=== PATIENT | female | born 1955 | race Caucasian/White ===

== ENCOUNTER 2018-02-07 19:27 | Inpatient (IN) ==
--- NOTE | 2018-02-07 19:47 | Emergency Department Note ---
Disposition Clinical Impression: Atrial fibrillation with rapid ventricular response Chest pain Qualifiers: Chest pain type: unspecified Qualified Code(s): R07.9 - Chest pain, unspecified Disposition: Admitted As Inpatient Condition: Good Referrals: Steven Ragsdale MD [Primary Care Provider] - Forms: ED Satisfaction Letter Time of Disposition: 21:38 Chest Pain HPI - General Chief Complaint: ED Chest Pain Stated Complaint: Chest Pain Time Seen by Provider: 02/07/18 19:36 Source: patient Limitations: no limitations Vital Signs Reviewed: Yes Nursing Notes Reviewed: Yes - History of Present Illness HPI Narrative: 62-year-old female former smoker with history of atrial fibrillation presents an emergency department via EMS for chest pain. She states about 20 minutes prior to arrival while using the toilet she began experiencing chest pain with associated shortness of breath and some nausea, denies any vomiting. She also reports diaphoresis during episode. Denies syncope. She did feel racing of the heart but after getting 4 baby aspirin and nitro by squad her pain has come down to a 2 or 3 of 10 in a heart seems to stop skipping a beat. Pain is nonradiating. She is also experiencing some back pain. She also reports prior history of pneumonia this past month. She reports history of atrial fibrillation in her pediatric associate Dr. Dian Marinelli 6 months ago took her off medications. She is unable to recall the names of these medications states she does not take anything for her atrial fibrillation at this time. She reports a history of hypercholesterolemia. Denies any cardiac ischemic disease or stroke history. She denies any anticoagulants used. She denies any abdominal pain or fever. Reports some increase in swelling the past 2 days in her lower extremity which she does attribute more to lymph nodes be taken out of her legs. Denies history of congestive heart failure. Pt complaint: chest pain Severity scale (1-10): 6 - Related Data Home Medications Medication Instructions Recorded Confirmed No Known Home Drugs 02/07/18 02/07/18 Allergies Allergy/AdvReac Type Severity Reaction Status Date / Time atorvastatin [From Lipitor] Allergy Cramping Verified 02/07/18 21:37 of the Muscles diltiazem Allergy Hypotension Verified 02/07/18 21:37 Txwcusj-Bdd-Pei Reductase Allergy Cramping Verified 02/07/18 21:37 Inhibitor of the [Statins] Muscles All systems ED: reviewed and negative except as stated. Review of Systems: As Per HPI Constitutional: Denies: fever, chills ENT ED: Denies: congestion Cardiovascular: Reports: chest pain, palpitations. Denies: dyspnea on exertion Respiratory: Reports: dyspnea. Denies: cough Gastrointestinal: Reports: nausea, diarrhea. Denies: abdominal pain, vomiting Genitourinary: Denies: urgency, dysuria Musculoskeletal: Reports: back pain Integumentary: Denies: rash, abrasion Chest Pain PMH - Past Medical History Medical history: Reports: cancer, hyperlipidemia Psychiatric history: Reports: anxiety, depression - Social History Smoking Status: Former smoker Alcohol use: Reports: none Drug use: Reports: none Physical Exam - General Limitations: no limitations General appearance: alert, in no apparent distress, obese - Head Head exam: atraumatic, normocephalic, normal inspection - Eye Eye exam: Present: normal appearance, PERRL, EOMI - ENT ENT exam: normal exam, normal oropharynx, mucous membranes moist - Neck Neck exam: Present: normal inspection, full ROM, trachea midline - Chest Chest inspection: Present: normal inspection, symmetric chest wall rise - Respiratory Respiratory exam: Present: normal lung sounds bilaterally. Absent: respiratory distress, wheezes - Cardiovascular Cardiovascular exam: Present: tachycardia, irregular rhythm, normal heart sounds - Expanded Cardiovascular Exam Peripheral pulses: 2+: radial (R), radial (L) - Abdominal Exam Abdominal exam: Present: soft (Obese), Non-Tender. Absent: tenderness, distention, guarding, rebound, rigidity - Extremities Exam Extremities exam: Present: normal inspection, full ROM, normal capillary refill , pedal edema (Nonpitting symmetrical). Absent: tenderness - Neurological Exam Neurological exam: Present: alert, oriented X3 - Psychiatric Psychiatric exam: Present: normal affect, normal mood - Skin Skin exam: Present: warm, dry, intact, normal color. Absent: rash, cyanosis, diaphoresis Course Course Narrative: EKG shows atrial fibrillation with rapid ventricular response. Her heart is irregularly irregular. Lungs are clear to auscultation bilaterally. Abdomen soft nontender nondistended. Nonpitting peripheral edema to bilateral lower extremities. Patient will be evaluated for his atrial fibrillation and given Cardizem 10 mg bolus and placed on drip she has adverse reaction of hypotension with diltiazem listed. She may require admission for atrial fibrillation. Chest pain workup initiated with troponin given onset of her chest pain. - Reevaluation(s) Reevaluation #1: Heart rate has improved with Cardizem. Heart rate is now in the 100s. Troponin is less than 0.03. No electrolyte abnormality. Hemoglobin stable. Her CHADSVASC scores 1. She will require admission for further evaluation of her chest pain with trending of the troponin. EKG does not show any acute ischemic changes. She also require further evaluation for atrial fibrillation with rapid ventricular response. Her chest x-ray shows a improving pneumonia. Patients in agreement with this plan. Impression is atrial fibrillation with rapid ventricular response and resolving pneumonia. Time: 21:35 - Consultations Consultation #1: Spoke with on-call hospitalist nellie Bhagat to admit for afib c RVR and resolving pneumonia. No further orders at this time Time: 21:38 Vital Signs Temperature 98.0 F 02/07/18 19:29 Pulse Rate 139 02/07/18 19:29 Respiratory Rate 20 02/07/18 19:29 Blood Pressure 118/67 02/07/18 19:29 O2 Sat by Pulse Oximetry 90 02/07/18 19:29 Temperature 98.0 F 02/07/18 19:29 Pulse Rate 106 02/07/18 20:32 Respiratory Rate 20 02/07/18 20:32 Blood Pressure 115/78 02/07/18 20:32 O2 Sat by Pulse Oximetry 95 02/07/18 20:32 Oxygen Delivery Oxygen Delivery Nasal Cannula Chest Pain - MDM Narrative Medical decision making narrative: Patient was discussed with my attending physician who agrees with ED management and final disposition. They independently evaluated the patient. Please refer to their attestation to this encounter for additional information. This note was generated by [employer] voice recognition software and as a result grammatical or spelling errors may occur using this program. - Medical Records Medical records reviewed: Yes I reviewed the patient's medical records. - Lab Data Lab results reviewed: Yes I reviewed the patient's lab results. Result diagrams: 02/07/18 19:44 02/07/18 19:44 Lab Results 02/07/18 02/07/18 02/07/18 Range/Units 19:44 19:44 19:44 WBC 9.0 (4.3-11.1) K/mcL RBC 4.56 (3.82-4.97) M/mcL Hgb 13.9 (11.5-15.4) g/dL Hct 40.3 (35.3-44.9) % MCV 88.4 (83.0-100.0) fL MCH 30.5 (28.0-33.3) pg MCHC 34.5 (31.6-35.5) g/dL RDW 13.2 (11.5-14.5) % Plt Count 329 (140-400) K/mcL MPV 9.0 L (9.4-12.4) fL Immature Gran % 0.9 (0-4) % Seg Neutrophils % 77.1 % Lymphocytes % 14.9 % Monocytes % 4.6 % Eosinophils % 1.8 % Basophils % 0.7 % Neutrophils # 6.9 (1.6-8.9) K/mcL Lymphocytes # 1.3 (0.6-4.6) K/mcL Monocytes # 0.4 (0.0-1.3) K/mcL Eosinophils # 0.2 (0.0-0.6) K/mcL Basophils # 0.1 (0.0-0.2) K/mcL PT 11.1 (9.4-12.1) Seconds INR 1.0 APTT 22.5 L (26.0-36.0) Seconds Sodium 135 L (136-145) mEq/L Potassium 4.4 (3.5-5.1) mEq/L Chloride 106 (98-107) mEq/L Carbon Dioxide 21 L (23-29) mEq/L BUN 17 (8-23) mg/dL Creatinine 0.86 (0.60-1.20) mg/dL Est GFR ( Amer) > 60 (> 60) Est GFR (Non-Af Amer) > 60 (> 60) BUN/Creatinine Ratio 20 (6-26) Glucose 184 H (70-105) mg/dL Calculated Osmolality 286 (280-300) Calcium 8.8 (8.6-10.3) mg/dL Troponin I < 0.03 (< 0.04) ng/mL TSH 1.789 (0.340-5.600) mcIU/mL - Radiology Data Radiology results reviewed: Yes I reviewed the patient's radiology results. Chest X-Ray 02/07/18 19:44 IMPRESSION: Patchy left lower lung pneumonia has partially cleared in the interval. D/ / Aaron Yap MD / Aaron Yap MD Interpreting Provider: Aaron Yap MD - EKG Data EKG attestation: Yes I reviewed and interpreted this EKG. EKG results narrative: EKG performed 1930 atrial fibrillation with rapid ventricular response 122 beats per minute, QRS 79, nonspecific ST T-wave changes. Compared to prior EKG performed 04/11/2016 with atrial fibrillation. No acute ischemic changes. Heart Score - Score History: Slightly Suspicious EKG: Non Specific repolarisation Disturbance Age: 45-65 Risk Factors: 1-2 risk factors Troponin: Less than normal limit HEART Score Total: 3
[2018-02-07 19:53] LABS: Basophils # 0.1 K/mcL (0.0-0.2); Basophils % 0.7 %; Eosinophils # 0.2 K/mcL (0.0-0.6); Eosinophils % 1.8 %; Hematocrit 40.3 % (35.3-44.9); Hemoglobin 13.9 g/dL (11.5-15.4); Immature Granulocytes % 0.9 % (0-4); Lymphocytes # 1.3 K/mcL (0.6-4.6); Lymphocytes % 14.9 %; Mean Corpuscular HGB Conc 34.5 g/dL (31.6-35.5); Mean Corpuscular Hemoglobin 30.5 pg (28.0-33.3); Mean Corpuscular Volume 88.4 fL (83.0-100.0); Monocytes # 0.4 K/mcL (0.0-1.3); Monocytes % 4.6 %; Neutrophils # 6.9 K/mcL (1.6-8.9); Platelet Count 329 K/mcL (140-400); Red Blood Count 4.56 M/mcL (3.82-4.97); Red Cell Distribution Width 13.2 % (11.5-14.5); Segmented Neutrophils % 77.1 %
[2018-02-07 19:58] LABS: Prothrombin Time 11.1 Seconds (9.4-12.1)
[2018-02-07 20:01] LABS: Activated Partial Thrombo Time 22.5 Seconds (26.0-36.0)
[2018-02-07 20:41] LABS: BUN/Creatinine Ratio 20 (6-26); Blood Urea Nitrogen 17 mg/dL (8-23); Calcium 8.8 mg/dL (8.6-10.3); Carbon Dioxide 21 mEq/L (23-29); Chloride 106 mEq/L (98-107); Glucose 184 mg/dL (70-105); Osmolality,Calculated 286 (280-300); Potassium 4.4 mEq/L (3.5-5.1); Sodium 135 mEq/L (136-145); eGFR For African Americans > 60 (> 60); eGFR For Non-African Americans > 60 (> 60)
[2018-02-07 20:42] LABS: Thyroid Stimulating Hormone 1.789 mcIU/mL (0.340-5.600); Troponin I < 0.03 ng/mL (< 0.04)
[2018-02-07] MEDS ORDERED: Ketorolac 15 MG/ML VIAL IVP ONE (20:59)
--- NOTE | 2018-02-07 22:27 | Emergency Department Note ---
Disposition Clinical Impression: Atrial fibrillation with rapid ventricular response Chest pain Qualifiers: Chest pain type: unspecified Qualified Code(s): R07.9 - Chest pain, unspecified Disposition: Admitted As Inpatient Condition: Good General Adult HPI - General Chief complaint: ED Chest Pain Stated complaint: Chest Pain Time Seen by Provider: 02/07/18 19:36 Source: patient Limitations: no limitations Nursing Notes Reviewed: Yes Vital Signs Reviewed: Yes - History of Present Illness Pain Scale: 0 - Related Data Home Medications Medication Instructions Recorded Confirmed No Known Home Drugs 02/07/18 02/07/18 Allergies Allergy/AdvReac Type Severity Reaction Status Date / Time atorvastatin [From Lipitor] Allergy Cramping Verified 02/07/18 21:37 of the Muscles diltiazem Allergy Hypotension Verified 02/07/18 21:37 Uuclfha-Kmp-Rwt Reductase Allergy Cramping Verified 02/07/18 21:37 Inhibitor of the [Statins] Muscles Constitutional: Denies: fever, chills ENT ED: Denies: congestion Cardiovascular: Reports: chest pain, palpitations. Denies: dyspnea on exertion Respiratory: Reports: dyspnea. Denies: cough Gastrointestinal: Reports: nausea, diarrhea. Denies: abdominal pain, vomiting Genitourinary: Denies: urgency, dysuria Musculoskeletal: Reports: back pain Integumentary: Denies: rash, abrasion Past Medical History - Past Medical History Medical history: Reports: cancer, hyperlipidemia Psychiatric history: Reports: anxiety, depression - Social History Smoking Status: Former smoker Smokeless Tobacco Status: No Alcohol use: Reports: none Drug use: Reports: none Physical Exam - General Limitations: no limitations General appearance: alert, in no apparent distress, obese Course Vital Signs Temperature 98.0 F 02/07/18 19:29 Pulse Rate 139 02/07/18 19:29 Respiratory Rate 20 02/07/18 19:29 Blood Pressure 118/67 02/07/18 19:29 O2 Sat by Pulse Oximetry 90 02/07/18 19:29 Temperature 98.0 F 02/07/18 19:29 Pulse Rate 102 02/07/18 22:14 Respiratory Rate 18 02/07/18 22:14 Blood Pressure 107/69 02/07/18 22:14 O2 Sat by Pulse Oximetry 98 02/07/18 22:14 Oxygen Delivery Oxygen Delivery Nasal Cannula Medical Decision Making - Lab Data Result diagrams: 02/07/18 19:44 02/07/18 19:44 Lab Results 02/07/18 02/07/18 02/07/18 Range/Units 19:44 19:44 19:44 WBC 9.0 (4.3-11.1) K/mcL RBC 4.56 (3.82-4.97) M/mcL Hgb 13.9 (11.5-15.4) g/dL Hct 40.3 (35.3-44.9) % MCV 88.4 (83.0-100.0) fL MCH 30.5 (28.0-33.3) pg MCHC 34.5 (31.6-35.5) g/dL RDW 13.2 (11.5-14.5) % Plt Count 329 (140-400) K/mcL MPV 9.0 L (9.4-12.4) fL Immature Gran % 0.9 (0-4) % Seg Neutrophils % 77.1 % Lymphocytes % 14.9 % Monocytes % 4.6 % Eosinophils % 1.8 % Basophils % 0.7 % Neutrophils # 6.9 (1.6-8.9) K/mcL Lymphocytes # 1.3 (0.6-4.6) K/mcL Monocytes # 0.4 (0.0-1.3) K/mcL Eosinophils # 0.2 (0.0-0.6) K/mcL Basophils # 0.1 (0.0-0.2) K/mcL PT 11.1 (9.4-12.1) Seconds INR 1.0 APTT 22.5 L (26.0-36.0) Seconds Sodium 135 L (136-145) mEq/L Potassium 4.4 (3.5-5.1) mEq/L Chloride 106 (98-107) mEq/L Carbon Dioxide 21 L (23-29) mEq/L BUN 17 (8-23) mg/dL Creatinine 0.86 (0.60-1.20) mg/dL Est GFR ( Amer) > 60 (> 60) Est GFR (Non-Af Amer) > 60 (> 60) BUN/Creatinine Ratio 20 (6-26) Glucose 184 H (70-105) mg/dL Calculated Osmolality 286 (280-300) Calcium 8.8 (8.6-10.3) mg/dL Troponin I < 0.03 (< 0.04) ng/mL TSH 1.789 (0.340-5.600) mcIU/mL Critical Care Time Critical Care Time: Yes Total Critical Care Time: 40 Attestation: Critical care performed: Time is exclusive of separately billable procedures. Time includes: direct patient care, patient reassessment, coordination of patient care, interpretation of data (laboratory data, radiology data, and respiratory data), review of patient's medical records, medical consultation and documentation of patient care. Procedures included in critical care time: Procedures excluded from critical care time: Attestation Statement - Attestation Attestation: I, Yobany Chahal MD, personally evaluated this patient and discussed their management with the resident physician. I reviewed the resident's note and agree with the documented findings, medical decision making, and plan of care. 62-year-old female with history of atrial fibrillation presents to the emergency department complaining of some mid chest pain this evening. She tells me she is actually had this pain intermittently for the past few days but it became worse this evening. Some shortness of breath associated with the pain. She also complains that she has had some diarrhea today. No syncope. On examination patient is a well-developed obese female in no acute distress. She is alert and oriented 3. There is no cyanosis or diaphoresis. Breath sounds are decreased bilaterally with a few bibasilar rales. Heart tachycardic and irregularly irregular. Abdomen soft and nontender with normal bowel sounds. Trace pedal edema. Labs reviewed. Troponin normal. EKG shows atrial fibrillation with RVR. Chest x-ray shows: Patchy left lower lung pneumonia has partially cleared in the interval. Patient was started on Cardizem infusion. The hospitalist, Dr. Bahena, was consulted and accepted admission of the patient.
[2018-02-07] MEDS ORDERED: Naloxone 0.4 MG/ML INJ IVP PRN (23:26)
[2018-02-07] MEDS ORDERED: Acetaminophen 325 MG TABLET PO PRN (23:26)
[2018-02-07] MEDS ORDERED: Isovue-370 500 ML INFUS..BTL IV ONE (23:36)
--- NOTE | 2018-02-08 00:11 | Internal Med History&Physical ---
<KashifMariana rodriguez - Last Filed: 02/08/18 00:35> Date of Encounter: 02/08/18 Time of Encounter: 00:09 Internal Medicine - H&P: HPI Chief complaint: Chest pain, diarrhea Admitted From: Emergency Dept Plans for Post Hospital Care: Home History of present illness: Ms. Marinelli is a 62 year old female with past medical history of hypertension, arthritis, HLD, atrial fibrillation, NIMO, obesity, valvular carcinoma (S/P surgical excision with lymph node excision-follows with in [place]), obesity with history of bariatric surgery in 2014. Patient says that starting this morning she had abdominal cramping and 8-9 episodes of diarrhea. She also states that her grandchildren and son has had diarrhea as well. She was also on antibiotics about 3 weeks ago for treatment of pneumonia. She also complained of chest pain that was substandard all, 10/10 radiating to the back. This pain was relieved with SL nitroglycerin. Chest pain was worse with movement as well. She did have a stress test in 2014 but does not remember the results. Patient admits to nausea with one episode of vomiting in the emergency department. She denies fevers, chills, shortness of breath, hematuria , hematochezia, melena, dizziness. Past Med Surg Social Fam HX - Past Medical History Medical history: cancer, hyperlipidemia Psychiatric history: anxiety, depression - Social History Smoking Status: Former smoker Smokeless Tobacco Status: No Alcohol use: none Drug use: none Internal Medicine - H&P: Meds No Known Home Drugs 02/07/18 [History] 3 Allergy/AdvReac Type Severity Reaction Status Date / Time atorvastatin [From Lipitor] Allergy Cramping Verified 02/07/18 21:37 of the Muscles diltiazem Allergy Hypotension Verified 02/07/18 21:37 Srhhmdj-Cjt-Wcn Reductase Allergy Cramping Verified 02/07/18 21:37 Inhibitor of the [Statins] Muscles All Systems PM: A 10-system review of systems was performed and is negative for pertinent findings except as documented above in the HPI. - Constitutional Vitals: Temp Pulse Resp BP Pulse Ox 97.4 F L 90 16 112/74 95 02/07/18 23:37 02/07/18 23:37 02/07/18 23:37 02/07/18 23:37 02/07/18 23:37 General appearance: Present: A&O X 3, pleasant, no acute distress, answers questions appropriately - Head Head exam: Present: atraumatic, normocephalic - Neck Neck exam general surgery: Present: supple, trachea midline - Respiratory Respiratory exam: Present: decreased breath sounds - Cardiovascular Cardiovascular exam: Present: distant heart sounds - GI/Abdominal GI/Abdominal exam: Present: distended, hypoactive bowel sounds, soft. Absent: tenderness - Extremities Exam Extremities exam: Absent: cyanotic, pedal edema - Neurological Exam Neurological exam: Present: alert, oriented X3, no focal deficits - Skin Skin exam: Present: intact Internal Med - H&P Results - Labs CBC & Chem 7: 02/07/18 19:44 02/07/18 19:44 - Assessment and plan (1) Atrial fibrillation with rapid ventricular response Current Visit: Yes Status: Acute Assessment and plan: History of atrial fibrillation, but patient currently is off all her medications. According to office visit note from 09/[address] Marinelli, she was previously on a beta darin was discontinued due to hypotension. Presented today with complaint of diarrhea, typical chest pain. EKG showed atrial fibrillation with RVR. Chest x-ray showed patchy left lower lung pneumonia that is partially cleared compared to prior study. Etiology unclear at this time. Initial troponin negative TSH within normal limits CHADS2/VASC: 2 Plan: trend troponins echocardiogram CTA to rule out PE Cardizem gtt-wean as tolerated Telemetry (2) Chest pain Current Visit: Yes Status: Acute Assessment and plan: Presents with typical chest pain, initial troponin negative. Had pharmacologic nuclear stress test in 01/2015 that was negative for ischemia or infarct plan: as above Qualifiers: Chest pain type: unspecified Qualified Code(s): R07.9 - Chest pain, unspecified (3) HTN (hypertension) Current Visit: No Status: Chronic Qualifiers: Hypertension type: unspecified Qualified Code(s): I10 - Essential (primary ) hypertension (4) Arthritis Current Visit: No Status: Chronic (5) Hyperlipidemia Current Visit: No Status: Chronic Qualifiers: Hyperlipidemia type: unspecified Qualified Code(s): E78.5 - Hyperlipidemia , unspecified (6) DVT prophylaxis Current Visit: Yes Status: Acute Assessment and plan: Heparin SQ (7) Diarrhea Current Visit: Yes Status: Acute Assessment and plan: Patient states that family members has been having diarrhea, and she was also recently on antibiotics 3 weeks ago for pneumonia. Plan: encourage oral hydration, check C diff Qualifiers: Diarrhea type: unspecified type Qualified Code(s): R19.7 - Diarrhea, unspecified - Time Spent With Patient Total time spent is greater than 50% in coordination of care (as documented) at patient's floor/unit and/or counseling patient: <Kenna Bunch - Last Filed: 02/08/18 01:24> Date of Encounter: 02/08/18 Internal Medicine - H&P: HPI History of present illness: Ms. Marinelli is a 62 year old female All Systems PM: A 10-system review of systems was performed and is negative for pertinent findings except as documented above in the HPI. - Constitutional Vitals: Temp Pulse Resp BP Pulse Ox 97.4 F L 90 16 112/74 95 02/07/18 23:37 02/07/18 23:37 02/07/18 23:37 02/07/18 23:37 02/07/18 23:37 Internal Med - H&P Results - Labs CBC & Chem 7: 02/07/18 19:44 02/07/18 19:44 - Attending Attestation I have seen and examined this patient independently. I have discussed with resident physician Dr Grider regarding the management plan. Agree with the documentation. - Assessment and plan (1) HTN (hypertension) Current Visit: No Status: Chronic Qualifiers: Hypertension type: unspecified Qualified Code(s): I10 - Essential (primary ) hypertension (2) Arthritis Current Visit: No Status: Chronic (3) Hyperlipidemia Current Visit: No Status: Chronic Qualifiers: Hyperlipidemia type: unspecified Qualified Code(s): E78.5 - Hyperlipidemia , unspecified (4) Chest pain Current Visit: Yes Status: Acute Qualifiers: Chest pain type: unspecified Qualified Code(s): R07.9 - Chest pain, unspecified (5) Atrial fibrillation with rapid ventricular response Current Visit: Yes Status: Acute (6) DVT prophylaxis Current Visit: Yes Status: Acute (7) Diarrhea Current Visit: Yes Status: Acute Qualifiers: Diarrhea type: unspecified type Qualified Code(s): R19.7 - Diarrhea, unspecified - Time Spent With Patient Total time spent is greater than 50% in coordination of care (as documented) at patient's floor/unit and/or counseling patient:
[2018-02-08] MEDS ORDERED: Isovue-370 500 ML INFUS..BTL IV ONE (02:10)
[2018-02-08] MEDS ORDERED: *HR* Heparin 5,000 UNIT/ML VIAL IVP PRN ×2 (05:08)
[2018-02-08] MEDS ORDERED: *HR* Heparin 5,000 UNIT/ML VIAL IVP ONE (05:08)
--- NOTE | 2018-02-08 05:11 | Event Note ---
Date of Encounter: 02/08/18 Time of Encounter: 05:09 Received phone call from [facility] radiology regarding critical results. Was notified that patient does have a small pulmonary embolus in the right lower area, no evidence of right heart strain. Patient will be started on heparin GTT , subcutaneous heparin will be discontinued. Nurse notified.
[2018-02-08] MEDS: Heparin 25,000 UNIT/500 ML D5W 25,000 UNIT/500 ML BAG IVC SCH ×2 (05:37→22:16)
[2018-02-08] MEDS ORDERED: *HR* Heparin 5,000 UNIT/ML VIAL SQ SCH (06:00)
[2018-02-08 06:26] LABS: BUN/Creatinine Ratio 24 (6-26); Blood Urea Nitrogen 18 mg/dL (8-23); Calcium 8.7 mg/dL (8.6-10.3); Carbon Dioxide 25 mEq/L (23-29); Chloride 106 mEq/L (98-107); Glucose 100 mg/dL (70-105); Magnesium 2.1 mg/dL (1.6-2.6); Osmolality,Calculated 284 (280-300); Phosphorous 3.5 mg/dL (2.7-4.5); Potassium 4.4 mEq/L (3.5-5.1); Sodium 136 mEq/L (136-145); eGFR For African Americans > 60 (> 60); eGFR For Non-African Americans > 60 (> 60)
[2018-02-08 07:15] LABS: Basophils % 0.7 %; Eosinophils % 0.7 %; Hematocrit 36.7 % (35.3-44.9); Hemoglobin 12.5 g/dL (11.5-15.4); Immature Granulocytes % 1.2 % (0-4); Lymphocytes # 1.1 K/mcL (0.6-4.6); Lymphocytes % 18.9 %; Mean Corpuscular HGB Conc 34.1 g/dL (31.6-35.5); Mean Corpuscular Hemoglobin 30.3 pg (28.0-33.3); Mean Corpuscular Volume 89.1 fL (83.0-100.0); Mean Platelet Volume 8.9 fL (9.4-12.4); Monocytes # 0.4 K/mcL (0.0-1.3); Monocytes % 7.4 %; Platelet Count 290 K/mcL (140-400); Red Blood Count 4.12 M/mcL (3.82-4.97); Red Cell Distribution Width 13.6 % (11.5-14.5); Segmented Neutrophils % 71.1 %
[2018-02-08] MEDS: Aspirin 81 MG TAB.CHEW PO SCH (09:25)
[2018-02-08 11:58] LABS: INR 1.2; Prothrombin Time 12.9 Seconds (9.4-12.1)
[2018-02-08 13:31] LABS: Activated Partial Thrombo Time 195.1 Seconds (26.0-36.0)
[2018-02-08 13:49] LABS: Heparin anti-factor XA UFH 1.63 IU/mL (0.30-0.70)
[2018-02-08] MEDS ORDERED: Ipratropium/Albuterol Neb 3 ML IH PRN (17:59)
[2018-02-08] MEDS: Levofloxacin 750 MG/150 ML 750 MG/150 ML BAG IVPB SCH (18:47)
--- NOTE | 2018-02-08 20:29 | Internal Med Progress Note ---
Date of Encounter: 02/08/18 Time of Encounter: 17:07 - Assessment and plan (1) Chest pain Current Visit: Yes Status: Resolved Assessment and plan: Resolved. Cardiac enzymes trended negative x 3. Treating Afib and PE as per below. Also starting to treat questionable PNA and likely COPD (not in exacerbation) as per below. Qualifiers: Chest pain type: other chest pain Qualified Code(s): R07.89 - Other chest pain; R07.8 - Other chest pain (2) Atrial fibrillation with rapid ventricular response Current Visit: Yes Status: Acute Assessment and plan: Continue telemetry and cardizem drip. Will wean cardizem drip and transition to PO once we obtain records from [employer]. (3) Pulmonary embolism Current Visit: Yes Status: Acute Assessment and plan: Continue heparin drip. Will transition to PO anticoagulation after determining insurance coverage. Qualifiers: Pulmonary embolism type: other Chronicity: acute Acute cor pulmonale presence: with acute cor pulmonale Qualified Code(s): I26.09 - Other pulmonary embolism with acute cor pulmonale (4) Pneumonia Current Visit: Yes Status: Acute Assessment and plan: Low suspicion. Will add IV levaquin for now. Qualifiers: Pneumonia type: due to unspecified organism Laterality: unspecified laterality Lung location: unspecified part of lung Qualified Code(s): J18.9 - Pneumonia, unspecified organism (5) COPD (chronic obstructive pulmonary disease) Current Visit: Yes Status: Acute Assessment and plan: Past history of this, but never really treated or controlled per patient. Start duonebs scheduled, albuterol nebs PRN, and guaifenesin. Qualifiers: COPD type: unspecified COPD Qualified Code(s): J44.9 - Chronic obstructive pulmonary disease, unspecified (6) HTN (hypertension) Current Visit: No Status: Chronic Assessment and plan: History of hypertension, but patient is not on any home medications, unclear why. Will try to obtain records from PCP/[employer]. Qualifiers: Hypertension type: unspecified Qualified Code(s): I10 - Essential (primary ) hypertension (7) Arthritis Current Visit: No Status: Chronic (8) Hyperlipidemia Current Visit: No Status: Chronic Qualifiers: Hyperlipidemia type: unspecified Qualified Code(s): E78.5 - Hyperlipidemia , unspecified (9) Diarrhea Current Visit: Yes Status: Resolved Assessment and plan: Resolved. Qualifiers: Diarrhea type: unspecified type Qualified Code(s): R19.7 - Diarrhea, unspecified (10) DVT prophylaxis Current Visit: Yes Status: Acute Assessment and plan: Continue heparin drip as per above. - Time Spent With Patient Total time spent is greater than 50% in coordination of care (as documented) at patient's floor/unit and/or counseling patient: 25 - 35 minutes - Subjective Interval history: Patient had no acute events overnight. She states that she is feeling better. Chest pain has resolved. Breathing is good. Still having some mild congestion and cough, but no pain with deep breaths or SOB. She does think she hears some breathing. I spent 30 minutes with patient today getting her full history. She states that she has been having "ammonia" for the past 1 month. I assume she is referring to pneumonia after further questioning. She states that she has been treated with antibiotics by urgent care few weeks ago. Then she followed up with PCP who gave her mucinex. Then she had CXR this week at request of PCP, and then had PCP follow-up this coming week. All for her "ammonia." She denies SOB, but states that she hears herself "wheeze." She states that she has had a diagnosis of Afib. She was on medications for long time by her [facility] [employer] Dr. Marinelli, but he stopped them a while back. She has been told that she has COPD, but she was never on any medication except an albuterol inhaler recently from urgent care. She states that the inhaler helps somewhat. She quit smoking cigarettes 10 years ago. I explained anticoagulation for PE to her. I answered all of her questions. She voiced understanding of plan going forward. CXR and CTA chest were questionable for pneumonia. I will add IV levaquin to her regimen, but I have low suspicion. I do believe uncontrolled COPD is playing a part, but not in exacerbation. I will add scheduled duonebs, albuterol nebs PRN, and guaifenesin. We will continue heparin drip for PE until we determine insurance coverage of PO anticoagulants. We will continue cardizem drip until we find out from [employer] what she was on before. Hopefully, we can obtain this or transition her to PO cardizem tomorrow. She denies chest pain, SOB, fever, chills, nausea, or vomiting at this time. She has no other complaints at this time. - Constitutional Vitals: Temp Pulse Resp BP Pulse Ox 97.7 F 84 18 105/67 95 02/08/18 19:40 02/08/18 19:40 02/08/18 19:40 02/08/18 19:40 02/08/18 19:40 General appearance: Present: cooperative, A&O X 3, morbidly obese, pleasant, no acute distress, answers questions appropriately - Respiratory Respiratory exam: Present: CTAB. Absent: accessory muscle use, rales, rhonchi, wheezes Additional comments: Normal WOB - Cardiovascular Cardiovascular exam: Present: RRR, +S1, +S2. Absent: diastolic murmur, gallop, rubs, systolic murmur Additional comments: No BLE edema - GI/Abdominal GI/Abdominal exam: Present: normal bowel sounds, soft. Absent: distended, hepatomegaly, mass, splenomegaly, tenderness - Psychiatric Psychiatric exam: Present: normal affect, normal mood. Absent: agitated, anxious, depressed - Skin Skin exam: Present: dry, intact, warm. Absent: cyanosis, rash Internal Medicine: Result - Labs CBC & Chem 7: 02/08/18 05:49 02/08/18 05:49 - ABG Interpretation ABG results: PT/INR, D-dimer PT 12.9 Seconds (9.4-12.1) H 02/08/18 11:34 D-Dimer 1397 ng/mLFEU (0-500) H 02/08/18 01:09 Consult Discharge Plan - Plan Referrals: Steven Ragsdale MD [Primary Care Provider] -
[2018-02-08] MEDS: Ipratropium/Albuterol Neb 3 ML IH SCH (21:31)
[2018-02-09] MEDS: Ipratropium/Albuterol Neb 3 ML IH SCH ×4 (03:08→22:33)
[2018-02-09 04:11] LABS: Basophils # 0.1 K/mcL (0.0-0.2); Basophils % 0.7 %; Eosinophils # 0.7 K/mcL (0.0-0.6); Eosinophils % 9.3 %; Hematocrit 35.7 % (35.3-44.9); Hemoglobin 12.3 g/dL (11.5-15.4); Immature Granulocytes % 1.9 % (0-4); Lymphocytes # 2.3 K/mcL (0.6-4.6); Lymphocytes % 32.3 %; Mean Corpuscular HGB Conc 34.5 g/dL (31.6-35.5); Mean Corpuscular Hemoglobin 30.4 pg (28.0-33.3); Mean Corpuscular Volume 88.4 fL (83.0-100.0); Mean Platelet Volume 8.9 fL (9.4-12.4); Monocytes # 0.7 K/mcL (0.0-1.3); Monocytes % 9.3 %; Neutrophils # 3.4 K/mcL (1.6-8.9); Nucleated Red Blood Cells 0.4 /100 WBC (0); Platelet Count 277 K/mcL (140-400); Red Blood Count 4.04 M/mcL (3.82-4.97); Red Cell Distribution Width 13.6 % (11.5-14.5); Segmented Neutrophils % 46.5 %
[2018-02-09] MEDS: Heparin 25,000 UNIT/500 ML D5W 25,000 UNIT/500 ML BAG IVC SCH ×2 (04:47→23:58)
[2018-02-09 05:07] LABS: BUN/Creatinine Ratio 20 (6-26); Blood Urea Nitrogen 14 mg/dL (8-23); Calcium 8.7 mg/dL (8.6-10.3); Carbon Dioxide 27 mEq/L (23-29); Chloride 105 mEq/L (98-107); Glucose 92 mg/dL (70-105); Osmolality,Calculated 286 (280-300); Potassium 3.9 mEq/L (3.5-5.1); Sodium 138 mEq/L (136-145); eGFR For African Americans > 60 (> 60); eGFR For Non-African Americans > 60 (> 60)
[2018-02-09] MEDS: Levofloxacin 750 MG/150 ML 750 MG/150 ML BAG IVPB SCH (08:10)
[2018-02-09] MEDS: Aspirin 81 MG TAB.CHEW PO SCH (08:10)
[2018-02-09] MEDS: Loratadine 10 MG TABLET PO SCH (15:48)
--- NOTE | 2018-02-09 21:28 | Internal Med Progress Note ---
Date of Encounter: 02/09/18 Time of Encounter: 16:07 - Assessment and plan (1) Chest pain Current Visit: Yes Status: Resolved Assessment and plan: Resolved. No further episodes since admission. Cardiac enzymes trended negative x 3. Treating Afib and PE as per below. Also starting to treat questionable PNA and likely COPD (in mild exacerbation) as per below. Qualifiers: Chest pain type: other chest pain Qualified Code(s): R07.89 - Other chest pain; R07.8 - Other chest pain (2) Atrial fibrillation with rapid ventricular response Current Visit: Yes Status: Acute Assessment and plan: Continue telemetry and cardizem drip. Will wean cardizem drip and transition to PO once we obtain records from [employer] [facility]. (3) Pulmonary embolism Current Visit: Yes Status: Acute Assessment and plan: Continue heparin drip. Will transition to PO anticoagulation after determining insurance coverage. Qualifiers: Pulmonary embolism type: other Chronicity: acute Acute cor pulmonale presence: with acute cor pulmonale Qualified Code(s): I26.09 - Other pulmonary embolism with acute cor pulmonale (4) Pneumonia Current Visit: Yes Status: Suspected Assessment and plan: Low suspicion. Will add IV levaquin for now. Qualifiers: Pneumonia type: due to unspecified organism Laterality: unspecified laterality Lung location: unspecified part of lung Qualified Code(s): J18.9 - Pneumonia, unspecified organism (5) COPD (chronic obstructive pulmonary disease) Current Visit: Yes Status: Acute Assessment and plan: Past history of this, but never really treated or controlled per patient. Continue duonebs scheduled, albuterol nebs PRN, and guaifenesin. Add claritin today because she has history of allergic rhinitis. Qualifiers: COPD type: unspecified COPD Qualified Code(s): J44.9 - Chronic obstructive pulmonary disease, unspecified (6) HTN (hypertension) Current Visit: No Status: Chronic Assessment and plan: History of hypertension, but patient is not on any home medications, unclear why. Will try to obtain records from PCP/[facility]. BP improved today. Qualifiers: Hypertension type: unspecified Qualified Code(s): I10 - Essential (primary ) hypertension (7) Arthritis Current Visit: No Status: Chronic (8) Hyperlipidemia Current Visit: No Status: Chronic Qualifiers: Hyperlipidemia type: unspecified Qualified Code(s): E78.5 - Hyperlipidemia , unspecified (9) Diarrhea Current Visit: Yes Status: Resolved Qualifiers: Diarrhea type: unspecified type Qualified Code(s): R19.7 - Diarrhea, unspecified (10) DVT prophylaxis Current Visit: Yes Status: Acute Assessment and plan: Continue heparin drip as per above. - Time Spent With Patient Total time spent is greater than 50% in coordination of care (as documented) at patient's floor/unit and/or counseling patient: 25 - 35 minutes - Subjective Interval history: Patient had no acute events overnight. She states that she is feeling "great" today. Chest pain remains resolved. Breathing is "much improved" and almost back to her baseline. Congestion and cough also improved. She does think she hears some breathing. Patient has family in room today. We again discussed disease process and plan of care. I told her that I am not convinced this is pneumonia. It is more likely mild COPD exacerbation. I will continue nebulizer treatments and antibiotic for now; no need for steroids. I will discharge her home with nebulizer prescription. Combined with the Afib and probable pulmonary embolism, this was likely causing her to feel "bad" over last 1 month. We will need to keep her at least another night so we can figure out insurance coverage for anticoagulant, find out previous Afib medications from [employer] [facility] (Dr. Marinelli) then wean cardizem, and set up home O2 and nebulizer machine. Patient states that she is "not wheezing anymore." Patient has no complaints at this time. She states that she was taken off of rate control medication by title [facility] because she had gastric bypass surgery and lost alot of weight, and title checker wanted to see if she would still need that medication because BP was dropping. I asked pateint's nurse to obtain cardiology records and notify MD when done. Patient's questions were answered. We are all in agreement over plan. - Constitutional Vitals: Temp Pulse Resp BP Pulse Ox 98.1 F 81 18 125/63 95 02/09/18 20:42 02/09/18 20:42 02/09/18 20:42 02/09/18 20:42 02/09/18 20:42 General appearance: Present: cooperative, A&O X 3, morbidly obese, pleasant, no acute distress, answers questions appropriately - Respiratory Respiratory exam: Present: CTAB. Absent: accessory muscle use, rales, rhonchi, wheezes Additional comments: Normal WOB - Cardiovascular Cardiovascular exam: Present: RRR, +S1, +S2. Absent: diastolic murmur, gallop, rubs, systolic murmur Additional comments: No BLE edema - GI/Abdominal GI/Abdominal exam: Present: normal bowel sounds, soft. Absent: distended, hepatomegaly, mass, splenomegaly, tenderness - Psychiatric Psychiatric exam: Present: normal affect, normal mood. Absent: agitated, anxious, depressed - Skin Skin exam: Present: dry, intact, warm. Absent: cyanosis, rash Internal Medicine: Result - Labs CBC & Chem 7: 02/09/18 03:28 02/09/18 03:28 Labs: Short CBC 02/09/18 Range/Units 03:28 WBC 7.2 (4.3-11.1) K/mcL Hgb 12.3 (11.5-15.4) g/dL Hct 35.7 (35.3-44.9) % Plt Count 277 (140-400) K/mcL Neutrophils # 3.4 (1.6-8.9) K/mcL BMP 02/09/18 03:28 Sodium 138 Potassium 3.9 Chloride 105 Carbon Dioxide 27 BUN 14 Creatinine 0.69 Glucose 92 Calcium 8.7 - ABG Interpretation ABG results: PT/INR, D-dimer PT 12.9 Seconds (9.4-12.1) H 02/08/18 11:34 D-Dimer 1397 ng/mLFEU (0-500) H 02/08/18 01:09 Consult Discharge Plan - Plan Referrals: Steven Ragsdale MD [Primary Care Provider] -
[2018-02-10] MEDS: Ipratropium/Albuterol Neb 3 ML IH SCH ×4 (04:15→22:11)
[2018-02-10 04:38] LABS: Basophils # 0.1 K/mcL (0.0-0.2); Basophils % 1.1 %; Eosinophils # 0.6 K/mcL (0.0-0.6); Eosinophils % 7.9 %; Hematocrit 37.3 % (35.3-44.9); Hemoglobin 12.9 g/dL (11.5-15.4); Immature Granulocytes % 2.4 % (0-4); Lymphocytes # 2.9 K/mcL (0.6-4.6); Lymphocytes % 41.8 %; Mean Corpuscular HGB Conc 34.6 g/dL (31.6-35.5); Mean Corpuscular Hemoglobin 30.2 pg (28.0-33.3); Mean Corpuscular Volume 87.4 fL (83.0-100.0); Mean Platelet Volume 8.9 fL (9.4-12.4); Monocytes # 0.6 K/mcL (0.0-1.3); Monocytes % 8.5 %; Neutrophils # 2.7 K/mcL (1.6-8.9); Platelet Count 294 K/mcL (140-400); Red Blood Count 4.27 M/mcL (3.82-4.97); Red Cell Distribution Width 13.6 % (11.5-14.5); Segmented Neutrophils % 38.3 %
[2018-02-10 04:59] LABS: BUN/Creatinine Ratio 15 (6-26); Blood Urea Nitrogen 12 mg/dL (8-23); Calcium 9.1 mg/dL (8.6-10.3); Carbon Dioxide 26 mEq/L (23-29); Chloride 105 mEq/L (98-107); Glucose 99 mg/dL (70-105); Osmolality,Calculated 288 (280-300); Potassium 3.7 mEq/L (3.5-5.1); Sodium 139 mEq/L (136-145); eGFR For African Americans > 60 (> 60); eGFR For Non-African Americans > 60 (> 60)
[2018-02-10] MEDS: levoFLOXacin 750 MG TABLET PO SCH (09:13)
[2018-02-10] MEDS: Aspirin 81 MG TAB.CHEW PO SCH (09:13)
[2018-02-10] MEDS: Loratadine 10 MG TABLET PO SCH (09:14)
--- NOTE | 2018-02-10 15:29 | Electrocardiograph Report ---
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
[2018-02-10] MEDS: Apixaban 5 MG TABLET PO SCH (21:05)
--- NOTE | 2018-02-10 22:08 | Internal Med Progress Note ---
Date of Encounter: 02/10/18 Time of Encounter: 12:37 - Assessment and plan (1) Chest pain Current Visit: Yes Status: Resolved Assessment and plan: Resolved. No further episodes since admission. Cardiac enzymes trended negative x 3. Treating Afib and PE as per below. Also starting to treat questionable PNA and likely COPD (in mild exacerbation) as per below. Qualifiers: Chest pain type: other chest pain Qualified Code(s): R07.89 - Other chest pain; R07.8 - Other chest pain (2) Atrial fibrillation with rapid ventricular response Current Visit: Yes Status: Acute Assessment and plan: Continue telemetry. Wean cardizem drip. Start metoprolol 25 mg BID. (3) Pulmonary embolism Current Visit: Yes Status: Acute Assessment and plan: Stop heparin drip tonight and start eliquis. Qualifiers: Pulmonary embolism type: other Chronicity: acute Acute cor pulmonale presence: with acute cor pulmonale Qualified Code(s): I26.09 - Other pulmonary embolism with acute cor pulmonale (4) Pneumonia Current Visit: Yes Status: Suspected Assessment and plan: Low suspicion. Continue IV levaquin and treat for total 5-7 days. Qualifiers: Pneumonia type: due to unspecified organism Laterality: unspecified laterality Lung location: unspecified part of lung Qualified Code(s): J18.9 - Pneumonia, unspecified organism (5) COPD (chronic obstructive pulmonary disease) Current Visit: Yes Status: Acute Assessment and plan: Past history of this, but never really treated or controlled per patient. Continue duonebs scheduled, albuterol nebs PRN, guaifenesin, and claritin. Have already written prescriptions for home nebulizer machine and duonebs at home. Qualifiers: COPD type: unspecified COPD Qualified Code(s): J44.9 - Chronic obstructive pulmonary disease, unspecified (6) HTN (hypertension) Current Visit: Yes Status: Chronic Assessment and plan: History of hypertension, but patient is not on any home medications, unclear why. Will try to obtain records from PCP/[facility]. BP improved today. Added metoprolol today for Afib rate control. Qualifiers: Hypertension type: unspecified Qualified Code(s): I10 - Essential (primary ) hypertension (7) Arthritis Current Visit: No Status: Chronic (8) Hyperlipidemia Current Visit: No Status: Chronic Assessment and plan: Check lipid panel. Has myalgias with multiple statins. Consider restarting home zetia. Qualifiers: Hyperlipidemia type: unspecified Qualified Code(s): E78.5 - Hyperlipidemia , unspecified (9) Diarrhea Current Visit: Yes Status: Resolved Assessment and plan: Resolved. Qualifiers: Diarrhea type: unspecified type Qualified Code(s): R19.7 - Diarrhea, unspecified (10) DVT prophylaxis Current Visit: Yes Status: Acute Assessment and plan: Starting eliquis tonight. - Time Spent With Patient Total time spent is greater than 50% in coordination of care (as documented) at patient's floor/unit and/or counseling patient: less than 15 minutes - Subjective Interval history: Patient had no acute events overnight. She states that she is feeling "great" today; back to her baseline. Chest pain remains resolved. Breathing is "much improved" and now back to her baseline. Congestion and cough also improved. We have obtained records from [employer] Dr. Marinelli. Patient previously on metoprolol 25 mg QAM and 50 mg QPM. We will discontinue cardizem drip and start metoprolol 25 mg BID. Her cost for Eliquis is $3/month, so will start on eliquis today for pulmonary embolism. SW has qualified patient for home nebulizer machine. I have written prescription for duonebs. We will keep patient overnight and adjust metoprolol as necessary to maintain rate control. Possible discharge home tomorrow. She has no complaints at this time. - Constitutional Vitals: Temp Pulse Resp BP Pulse Ox 98.0 F 83 18 100/63 92 02/10/18 19:38 02/10/18 19:38 02/10/18 19:38 02/10/18 19:38 02/10/18 19:38 General appearance: Present: cooperative, A&O X 3, morbidly obese, pleasant, no acute distress, answers questions appropriately - Respiratory Respiratory exam: Present: CTAB. Absent: accessory muscle use, rales, rhonchi, wheezes Additional comments: Normal WOB - Cardiovascular Cardiovascular exam: Present: RRR, +S1, +S2. Absent: diastolic murmur, gallop, rubs, systolic murmur Additional comments: No BLE edema - GI/Abdominal GI/Abdominal exam: Present: normal bowel sounds, soft. Absent: distended, hepatomegaly, mass, splenomegaly, tenderness - Psychiatric Psychiatric exam: Present: normal affect, normal mood. Absent: agitated, anxious, depressed - Skin Skin exam: Present: dry, intact, warm. Absent: cyanosis, rash Internal Medicine: Result - Labs CBC & Chem 7: 02/10/18 03:51 02/10/18 03:51 Labs: Short CBC 02/10/18 Range/Units 03:51 WBC 7.0 (4.3-11.1) K/mcL Hgb 12.9 (11.5-15.4) g/dL Hct 37.3 (35.3-44.9) % Plt Count 294 (140-400) K/mcL Neutrophils # 2.7 (1.6-8.9) K/mcL BMP 02/10/18 03:51 Sodium 139 Potassium 3.7 Chloride 105 Carbon Dioxide 26 BUN 12 Creatinine 0.81 Glucose 99 Calcium 9.1 - ABG Interpretation ABG results: PT/INR, D-dimer PT 12.9 Seconds (9.4-12.1) H 02/08/18 11:34 D-Dimer 1397 ng/mLFEU (0-500) H 02/08/18 01:09 Consult Discharge Plan - Plan Referrals: Steven Ragsdale MD [Primary Care Provider] -
[2018-02-11] MEDS: Ipratropium/Albuterol Neb 3 ML IH SCH ×3 (03:34→16:14)
[2018-02-11 05:00] LABS: Basophils # 0.1 K/mcL (0.0-0.2); Basophils % 1.3 %; Eosinophils # 0.5 K/mcL (0.0-0.6); Eosinophils % 7.6 %; Hematocrit 37.6 % (35.3-44.9); Hemoglobin 12.5 g/dL (11.5-15.4); Lymphocytes # 2.6 K/mcL (0.6-4.6); Lymphocytes % 36.3 %; Mean Corpuscular HGB Conc 33.2 g/dL (31.6-35.5); Mean Corpuscular Hemoglobin 29.3 pg (28.0-33.3); Mean Corpuscular Volume 88.3 fL (83.0-100.0); Mean Platelet Volume 9.2 fL (9.4-12.4); Monocytes # 0.6 K/mcL (0.0-1.3); Neutrophils # 3.2 K/mcL (1.6-8.9); Platelet Count 295 K/mcL (140-400); Red Blood Count 4.26 M/mcL (3.82-4.97); Segmented Neutrophils % 44.8 %
[2018-02-11 05:22] LABS: BUN/Creatinine Ratio 17 (6-26); Blood Urea Nitrogen 15 mg/dL (8-23); Carbon Dioxide 28 mEq/L (23-29); Chloride 106 mEq/L (98-107); Glucose 93 mg/dL (70-105); Osmolality,Calculated 289 (280-300); Potassium 3.9 mEq/L (3.5-5.1); Sodium 139 mEq/L (136-145); eGFR For African Americans > 60 (> 60); eGFR For Non-African Americans > 60 (> 60)
[2018-02-11] MEDS: levoFLOXacin 750 MG TABLET PO SCH (08:31)
[2018-02-11] MEDS: Aspirin 81 MG TAB.CHEW PO SCH (08:32)
[2018-02-11] MEDS: Apixaban 5 MG TABLET PO SCH (08:32)
[2018-02-11] MEDS: Loratadine 10 MG TABLET PO SCH (08:32)
--- NOTE | 2018-02-11 09:32 | Discharge Summary ---
- NOTES TO OUTPATIENT PROVIDER Notes to Outpatient Provider: f/u with PCP in one week. f/u with Heme Onc from [facility] in 1-2 weeks. f/u with Cardiology as scheduled before Orders not resulted at time of discharge: Pending orders 02/11/18 09:08 Venous Doppler [EV venous imaging LE BI] Stat Date of Encounter: 02/11/18 Time of Encounter: 09:29 - Discharge Diagnosis (1) Pneumonia Priority: Primary Status: Suspected Qualifiers: Pneumonia type: due to unspecified organism Laterality: unspecified laterality Lung location: unspecified part of lung Qualified Code(s): J18.9 - Pneumonia, unspecified organism (2) Pulmonary embolism Priority: Primary Status: Acute Qualifiers: Pulmonary embolism type: other Chronicity: acute Acute cor pulmonale presence: with acute cor pulmonale Qualified Code(s): I26.09 - Other pulmonary embolism with acute cor pulmonale (3) HTN (hypertension) Priority: Secondary Status: Chronic Qualifiers: Hypertension type: unspecified Qualified Code(s): I10 - Essential (primary ) hypertension (4) Arthritis Priority: Secondary Status: Chronic (5) Hyperlipidemia Priority: Secondary Status: Chronic Qualifiers: Hyperlipidemia type: unspecified Qualified Code(s): E78.5 - Hyperlipidemia , unspecified (6) Chest pain Priority: Primary Status: Resolved Qualifiers: Chest pain type: other chest pain Qualified Code(s): R07.89 - Other chest pain; R07.8 - Other chest pain (7) Atrial fibrillation with rapid ventricular response Priority: Primary Status: Acute (8) DVT prophylaxis Priority: Secondary Status: Acute (9) Diarrhea Priority: Secondary Status: Resolved Qualifiers: Diarrhea type: unspecified type Qualified Code(s): R19.7 - Diarrhea, unspecified (10) COPD (chronic obstructive pulmonary disease) Priority: Secondary Status: Acute Qualifiers: COPD type: unspecified COPD Qualified Code(s): J44.9 - Chronic obstructive pulmonary disease, unspecified Hospital course: Ms. Marinelli is a 62 year old female with past medical history of hypertension, arthritis, HLD, atrial fibrillation, NIMO, obesity, valvular carcinoma (S/P surgical excision with lymph node excision-follows with Oncologist from [facility] in [place]), obesity with history of bariatric surgery in 2014. Pt presented to ER with chest pain, she happened to have pneumonia and Rt lower lobe PE. She also was in A fib with RVR. Pt was admitted in the hosital and started her on Heparin gtt and empiricla abx. For her Afib she was placed onc ardizem gtt and eventually switched to PO Metoprolol. Her PE could be due to her underline Vulvar cancer so she may need nursing home anti coagulation even for her Afib too. Started her on Eliquis. Will sent her home today in stable condition,, to finish full work up will do Venous doppler her of her both lower extremities - Time Spent with Patient Total time spent providing and/or coordinating discharge services: - Discharge Medications Prescriptions: Apixaban [Eliquis] 10 mg PO BID 30 Days tablet Aspirin 81 mg PO DAILY #30 tab.chew levoFLOXacin [Levaquin] 750 mg PO DAILY #1 tablet Metoprolol [Lopressor] 25 mg PO BID #60 tablet Home Medications: Apixaban [Eliquis] 10 mg PO BID 30 Days tablet 02/11/18 [Rx] Aspirin 81 mg PO DAILY #30 tab.chew 02/11/18 [Rx] Metoprolol [Lopressor] 25 mg PO BID #60 tablet 02/11/18 [Rx] levoFLOXacin [Levaquin] 750 mg PO DAILY #1 tablet 02/11/18 [Rx] Allergies/Adverse Reactions: 3 Allergy/AdvReac Type Severity Reaction Status Date / Time atorvastatin [From Lipitor] Allergy Cramping Verified 02/07/18 21:37 of the Muscles [id number]-[id number] Reductase Allergy Cramping Verified 02/07/18 21:37 Inhibitor of the [Statins] Muscles Date of admission: 02/08/18 08:11 Primary care physician: Steven Ragsdale Consults: 02/09/18 11:03 Consult to Prescription Clerk [employer]enses [CONS] Stat Reason for SW Consult: Please determine anticoagulation coverage by patient' s insurance. 02/09/18 21:22 Consult to Prescription Clerk [employer] [CONS] Stat Reason for SW Consult: Please also get patient set up with home nebulizer machine and home O2 if qualifies. 02/10/18 08:35 Consult to Prescription Clerk [employer] [CONS] Stat Reason for SW Consult: Please identify insurance coverage for anticoagulant. I can print prescription if necessary. Please let me know. Thanks. - Constitutional Vitals: Temp Pulse Resp BP Pulse Ox 98.7 F 78 18 111/73 94 02/11/18 07:19 02/11/18 07:19 02/11/18 07:19 02/11/18 07:19 02/11/18 07:19 General appearance: Present: cooperative, A&O X 3, morbidly obese, pleasant, no acute distress, answers questions appropriately - Head Head exam: Present: atraumatic, normal inspection - Neck Neck exam general surgery: Present: supple - Respiratory Respiratory exam: Present: decreased breath sounds. Absent: rales, respiratory distress, rhonchi, wheezes - Cardiovascular Cardiovascular exam: Present: RRR, +S1, +S2. Absent: tachycardia - GI/Abdominal GI/Abdominal exam: Present: normal bowel sounds, soft. Absent: rebound, rigid, tenderness - Extremities Exam Extremities exam: Absent: calf tenderness, pedal edema, tenderness - Back Exam Back exam: Absent: CVA tenderness (L), CVA tenderness (R) - Psychiatric Psychiatric exam: Present: normal affect, normal mood - Patient Status Disposition: Home, Self-Care Condition: Good Overall status at discharge: patient is back to baseline - Discharge Instructions Follow Up With: Steven Ragsdale MD [Primary Care Provider] - - Diet and Activity Activity: increase activity as tolerated Diet: low salt diet
[2018-02-11 11:16] VITALS: BP 100/62
[2018-02-17] MEDS ORDERED: Apixaban 5 MG TABLET PO SCH (21:00)
== END 2018-02-11 17:07 | disposition home or self-care (01) | DRG 175 ==
LOC: 2ANU 19:27 → EMEROO 19:27 → 2ANU 22:25 → SUATTDRO 02-08 08:11
PROVIDERS: ADMIT Pediatrics; ATTEND Family Medicine

== ENCOUNTER 2020-07-28 13:08 | Inpatient (IN) ==
[2020-07-28] MEDS ORDERED: 0.9 % Sodium Chloride 1,000 ML IVC ONE ×2 (13:22→14:41)
[2020-07-28 13:57] LABS: Hemoglobin 8.4 g/dL (11.5-15.4)
[2020-07-28 14:00] LABS: Basophils % 2.2 %; Eosinophils % 2.2 %; Hematocrit 25.3 % (35.3-44.9); Immature Granulocytes % 4.4 % (0-4); Immature Platelets 8.5 % (1.1-6.1); Lymphocytes % 73.3 %; Mean Corpuscular HGB Conc 33.2 g/dL (31.6-35.5); Mean Corpuscular Hemoglobin 30.5 pg (28.0-33.3); Mean Platelet Volume 12.2 fL (9.4-12.4); Monocytes # 0.1 K/mcL (0.0-1.3); Monocytes % 15.6 %; Nucleated Red Blood Cells 4.4 /100 WBC (0); Red Blood Count 2.75 M/mcL (3.82-4.97); Red Cell Distribution Width 15.7 % (11.5-14.5); Segmented Neutrophils % 2.3 %
[2020-07-28 14:01] LABS: Lymphocytes # 0.4 K/mcL (0.6-4.6)
[2020-07-28 14:06] LABS: Platelet Count 24 K/mcL (140-400)
[2020-07-28 14:07] LABS: White Blood Count 0.5 K/mcL (4.3-11.1)
[2020-07-28 14:35] LABS: Alanine Aminotransferase 4 Units/L (7-52); Albumin 2.3 g/dL (3.5-5.7); Albumin/Globulin Ratio 1.2 (1.1-2.2); Alkaline Phosphatase 26 Units/L (34-104); Aspartate Amino Transferase 10 Units/L (13-39); BUN/Creatinine Ratio 28 (6-26); Blood Urea Nitrogen 22 mg/dL (8-23); Calcium 6.5 mg/dL (8.6-10.3); Carbon Dioxide 29 mEq/L (23-29); Chloride 99 mEq/L (98-107); Glucose 99 mg/dL (70-105); Magnesium 0.9 mg/dL (1.6-2.6); Osmolality,Calculated 295 (280-300); Phosphorous 1.9 mg/dL (2.7-4.5); Potassium 2.5 mEq/L (3.5-5.1); Sodium 141 mEq/L (136-145); Total Protein 4.3 g/dL (6.4-8.9); Troponin I < 0.03 ng/mL (< 0.04); eGFR For African Americans > 60 (> 60); eGFR For Non-African Americans > 60 (> 60)
[2020-07-28 14:36] LABS: INR 1.4; Prothrombin Time 15.7 Seconds (9.4-12.1)
[2020-07-28 14:39] LABS: Activated Partial Thrombo Time 21.2 Seconds (26.0-36.0)
[2020-07-28] MEDS ORDERED: Piperacillin/Tazobactam 3.375 GM in 0.9 % Sodium Chloride Mini Bag 100 ML IVPB ONE (14:41)
[2020-07-28 14:43] LABS: Bacteria,Urine Few per hpf (None-Few); Bilirubin,Urine Negative (Negative); Blood,Urine Moderate (Negative); Clarity,Urine Turbid (Clear); Color,Urine Yellow (Yellow); Glucose,Urine (UA) Normal (Normal); Granular Casts,Urine Few per lpf (None Seen); Hyaline Casts,Urine Few per lpf (None Seen); Ketones,Urine 20 mg/dL (Negative); Leukocyte Esterase,Urine Large (Negative); Mucus,Urine Few per lpf (None-Few); Nitrite,Urine Positive (Negative); PH,Urine 5.5 pH Units (5.0-8.0); Protein,Urine 50 mg/dL (Neg-Trace); RBC,Urine 15-30 per hpf (0-3); Renal Epithelial Cells,Urine Many per hpf (None-Few); Specific Gravity,Urine 1.018 (1.010-1.025); Squamous Epithelial Cell,Urine Few per hpf (None-Few); Transitional Epi Cells,Urine Few per hpf (None-Few); WBC,Urine TNTC per hpf (0-3)
[2020-07-28 14:44] LABS: Anisocytosis 1+ (Not Present)
[2020-07-28 14:45] LABS: Platelet Estimate Decreased (Normal); Reactive Lymphocytes Present (Not Present)
[2020-07-28] MEDS ORDERED: Potassium Chloride 40 MEQ, Lidocaine 1% 2 ML in 0.9 % Sodium Chloride 500 ML IVPB ONE ×2 (14:46→20:00)
[2020-07-28] MEDS ORDERED: Naloxone 0.4 MG/ML INJ IVP PRN (16:07)
[2020-07-28] MEDS ORDERED: GuaiFENesin Liq 200 MG/10 ML UDC PO PRN (18:29)
[2020-07-28] MEDS: 0.9 % Sodium Chloride 1,000 ML IVC SCH (18:53)
[2020-07-29] MEDS ORDERED: Cefepime HCl 2,000 MG in Water for inj. (sterile) 20 ML IVP SCH ×2 (03:00→06:00)
[2020-07-29 06:05] LABS: Hemoglobin 8.2 g/dL (11.5-15.4)
[2020-07-29 06:07] LABS: Basophils % 3.5 %; Eosinophils % 2.3 %; Hematocrit 25.6 % (35.3-44.9); Immature Granulocytes % 1.2 % (0-4); Immature Platelets 11.1 % (1.1-6.1); Lymphocytes # 0.5 K/mcL (0.6-4.6); Lymphocytes % 53.5 %; Mean Corpuscular Hemoglobin 30.3 pg (28.0-33.3); Mean Corpuscular Volume 94.5 fL (83.0-100.0); Monocytes # 0.1 K/mcL (0.0-1.3); Monocytes % 12.8 %; Neutrophils # 0.2 K/mcL (1.6-8.9); Nucleated Red Blood Cells 3.5 /100 WBC (0); Red Blood Count 2.71 M/mcL (3.82-4.97); Red Cell Distribution Width 16.2 % (11.5-14.5); Segmented Neutrophils % 26.7 %
[2020-07-29 06:30] LABS: White Blood Count 0.9 K/mcL (4.3-11.1)
[2020-07-29 06:31] LABS: Platelet Count 17 K/mcL (140-400)
[2020-07-29 06:33] LABS: BUN/Creatinine Ratio 29 (6-26); Blood Urea Nitrogen 18 mg/dL (8-23); Calcium 6.7 mg/dL (8.6-10.3); Carbon Dioxide 26 mEq/L (23-29); Chloride 107 mEq/L (98-107); Glucose 77 mg/dL (70-105); Magnesium 1.7 mg/dL (1.6-2.6); Osmolality,Calculated 293 (280-300); Phosphorous 1.6 mg/dL (2.7-4.5); Potassium 3.6 mEq/L (3.5-5.1); Sodium 141 mEq/L (136-145); eGFR For African Americans > 60 (> 60); eGFR For Non-African Americans > 60 (> 60)
[2020-07-29] MEDS ORDERED: Acetaminophen 325 MG TABLET PO PRN ×2 (06:56→12:08)
[2020-07-29 07:26] LABS: Anisocytosis 1+ (Not Present); Microcytosis Present (Not Present)
[2020-07-29 07:27] LABS: Platelet Estimate Marked Decrease (Normal)
[2020-07-29] MEDS ORDERED: *HR* OxyCODONE/APAP 5/325 TABLET PO PRN ×2 (09:03→09:17)
[2020-07-29] MEDS: 0.9 % Sodium Chloride 1,000 ML IVC SCH (09:06)
[2020-07-29] MEDS: Cefepime HCl 2,000 MG in Water for inj. (sterile) 20 ML IVP SCH ×2 (14:57→22:43)
[2020-07-29] MEDS: *HR* OxyCODONE/APAP 5/325 TABLET PO PRN (17:51)
[2020-07-30] MEDS: *HR* OxyCODONE/APAP 5/325 TABLET PO PRN ×3 (00:58→16:47)
[2020-07-30 01:54] LABS: Nucleated Red Blood Cells 0.8 /100 WBC (0); Red Cell Distribution Width 16.4 % (11.5-14.5)
[2020-07-30 01:56] LABS: Hematocrit 28.6 % (35.3-44.9); Hemoglobin 9.2 g/dL (11.5-15.4); Immature Platelets 9.9 % (1.1-6.1); Mean Corpuscular HGB Conc 32.2 g/dL (31.6-35.5); Mean Corpuscular Hemoglobin 30.3 pg (28.0-33.3); Mean Corpuscular Volume 94.1 fL (83.0-100.0); Mean Platelet Volume 12.3 fL (9.4-12.4); Monocytes # 0.1 K/mcL (0.0-1.3); Red Blood Count 3.04 M/mcL (3.82-4.97); White Blood Count 2.5 K/mcL (4.3-11.1)
[2020-07-30 01:58] LABS: BUN/Creatinine Ratio 26 (6-26); Blood Urea Nitrogen 16 mg/dL (8-23); Calcium 7.1 mg/dL (8.6-10.3); Carbon Dioxide 26 mEq/L (23-29); Chloride 107 mEq/L (98-107); Glucose 78 mg/dL (70-105); Magnesium 1.5 mg/dL (1.6-2.6); Osmolality,Calculated 294 (280-300); Phosphorous 1.8 mg/dL (2.7-4.5); Potassium 3.2 mEq/L (3.5-5.1); Sodium 142 mEq/L (136-145); eGFR For African Americans > 60 (> 60); eGFR For Non-African Americans > 60 (> 60)
[2020-07-30 01:59] LABS: Platelet Count 19 K/mcL (140-400)
[2020-07-30 02:15] LABS: Eosinophils # 0.2 K/mcL (0.0-0.6); Lymphocytes # 1.1 K/mcL (0.6-4.6); Neutrophils # 1.2 K/mcL (1.6-8.9); Platelet Estimate Marked Decrease (Normal)
[2020-07-30] MEDS: Cefepime HCl 2,000 MG in Water for inj. (sterile) 20 ML IVP SCH ×3 (06:10→22:27)
[2020-07-30] MEDS ORDERED: Potassium Chloride 40 MEQ, Lidocaine 1% 2 ML in 0.9 % Sodium Chloride 500 ML IVPB ONE (07:57)
[2020-07-31] MEDS: Cefepime HCl 2,000 MG in Water for inj. (sterile) 20 ML IVP SCH ×3 (07:42→22:57)
[2020-07-31] MEDS: *HR* OxyCODONE/APAP 5/325 TABLET PO PRN ×2 (08:07→17:35)
[2020-07-31 08:40] LABS: BUN/Creatinine Ratio 29 (6-26); Blood Urea Nitrogen 18 mg/dL (8-23); Calcium 7.9 mg/dL (8.6-10.3); Carbon Dioxide 23 mEq/L (23-29); Chloride 109 mEq/L (98-107); Glucose 77 mg/dL (70-105); Osmolality,Calculated 293 (280-300); Potassium 3.8 mEq/L (3.5-5.1); Sodium 141 mEq/L (136-145); eGFR For African Americans > 60 (> 60); eGFR For Non-African Americans > 60 (> 60)
[2020-07-31 08:48] LABS: Basophils # 0.1 K/mcL (0.0-0.2); Basophils % 1.2 %; Eosinophils % 0.3 %; Hematocrit 27.9 % (35.3-44.9); Hemoglobin 9.2 g/dL (11.5-15.4); Immature Granulocytes % 12.8 % (0-4); Mean Platelet Volume 12.4 fL (9.4-12.4); Monocytes # 0.4 K/mcL (0.0-1.3); Monocytes % 5.3 %; Neutrophils # 4.5 K/mcL (1.6-8.9); Nucleated Red Blood Cells 0.6 /100 WBC (0); Red Blood Count 2.97 M/mcL (3.82-4.97); Red Cell Distribution Width 16.7 % (11.5-14.5); Segmented Neutrophils % 65.4 %; White Blood Count 6.8 K/mcL (4.3-11.1)
[2020-07-31 08:50] LABS: Mean Corpuscular Volume 93.9 fL (83.0-100.0); Platelet Count 34 K/mcL (140-400)
[2020-07-31 09:11] LABS: Platelet Estimate Marked Decrease (Normal); Reactive Lymphocytes Present (Not Present)
[2020-08-01 02:44] LABS: Red Cell Distribution Width 17.2 % (11.5-14.5)
[2020-08-01 02:46] LABS: Hematocrit 26.9 % (35.3-44.9); Hemoglobin 8.7 g/dL (11.5-15.4); Immature Platelets 7.8 % (1.1-6.1); Mean Corpuscular HGB Conc 32.3 g/dL (31.6-35.5); Mean Corpuscular Hemoglobin 30.3 pg (28.0-33.3); Mean Corpuscular Volume 93.7 fL (83.0-100.0); Mean Platelet Volume 11.3 fL (9.4-12.4); Nucleated Red Blood Cells 0.7 /100 WBC (0); Red Blood Count 2.87 M/mcL (3.82-4.97); White Blood Count 6.8 K/mcL (4.3-11.1)
[2020-08-01 03:00] LABS: BUN/Creatinine Ratio 28 (6-26); Blood Urea Nitrogen 20 mg/dL (8-23); Calcium 8.1 mg/dL (8.6-10.3); Carbon Dioxide 26 mEq/L (23-29); Chloride 109 mEq/L (98-107); Glucose 76 mg/dL (70-105); Osmolality,Calculated 297 (280-300); Potassium 3.7 mEq/L (3.5-5.1); Sodium 143 mEq/L (136-145); eGFR For African Americans > 60 (> 60); eGFR For Non-African Americans > 60 (> 60)
[2020-08-01 03:01] LABS: Platelet Count 27 K/mcL (140-400)
[2020-08-01 04:04] LABS: Lymphocytes # 1.2 K/mcL (0.6-4.6); Monocytes # 0.5 K/mcL (0.0-1.3)
[2020-08-01 04:05] LABS: Anisocytosis 1+ (Not Present); Platelet Estimate Marked Decrease (Normal); Polychromasia 1+ (Not Present); Reactive Lymphocytes Present (Not Present)
[2020-08-01] MEDS: Cefepime HCl 2,000 MG in Water for inj. (sterile) 20 ML IVP SCH ×3 (07:58→22:01)
[2020-08-01] MEDS: Magic Mouthwash 10 ML UD Cup PO SCH (19:42)
[2020-08-02] MEDS: Cefepime HCl 2,000 MG in Water for inj. (sterile) 20 ML IVP SCH (06:05)
[2020-08-02 06:28] LABS: Hematocrit 25.9 % (35.3-44.9); Nucleated Red Blood Cells 0.7 /100 WBC (0); Red Cell Distribution Width 17.3 % (11.5-14.5)
[2020-08-02 06:31] LABS: Hemoglobin 8.3 g/dL (11.5-15.4); Mean Corpuscular Hemoglobin 30.2 pg (28.0-33.3); Mean Corpuscular Volume 94.2 fL (83.0-100.0); Mean Platelet Volume 10.3 fL (9.4-12.4); Red Blood Count 2.75 M/mcL (3.82-4.97); White Blood Count 5.7 K/mcL (4.3-11.1)
[2020-08-02 06:37] LABS: Platelet Count 26 K/mcL (140-400)
[2020-08-02 06:50] LABS: BUN/Creatinine Ratio 33 (6-26); Blood Urea Nitrogen 20 mg/dL (8-23); Carbon Dioxide 25 mEq/L (23-29); Chloride 109 mEq/L (98-107); Glucose 77 mg/dL (70-105); Osmolality,Calculated 297 (280-300); Potassium 3.2 mEq/L (3.5-5.1); Sodium 143 mEq/L (136-145); eGFR For African Americans > 60 (> 60); eGFR For Non-African Americans > 60 (> 60)
[2020-08-02 06:52] LABS: % Iron Saturation 86 % (15-50); Iron 145 mcg/dL (50-170); Transferrin 120 mg/dL (203-362)
[2020-08-02 07:04] LABS: Anisocytosis 1+ (Not Present); Lymphocytes # 0.6 K/mcL (0.6-4.6); Macrocytosis Present (Not Present); Monocytes # 0.1 K/mcL (0.0-1.3); Neutrophils # 4.6 K/mcL (1.6-8.9)
[2020-08-02 07:05] LABS: Platelet Estimate Marked Decrease (Normal)
[2020-08-02 07:10] LABS: Ferritin > 1500 ng/mL (10-120)
[2020-08-02 07:13] LABS: Folate 4.3 ng/mL (3.0-16.0)
[2020-08-02] MEDS: Magic Mouthwash 10 ML UD Cup PO SCH ×3 (07:34→15:10)
[2020-08-02] MEDS ORDERED: Potassium Chloride Elixir 20 MEQ/15 ML UDC PO ONE (08:53)
[2020-08-02] MEDS ORDERED: Cyanocobalamin (B-12) 1,000 MCG TABLET PO SCH (09:00)
[2020-08-02] MEDS ORDERED: Folic Acid 1 MG TABLET PO SCH (09:00)
[2020-08-02 17:45] LABS: Adenovirus Not Detected (Not Detect); Bordetella Pertussis Not Detected (Not Detect); Chlamydophila pneumoniae Not Detected (Not Detect); Coronavirus 229E Not Detected (Not Detect); Coronavirus HKU1 Not Detected (Not Detect); Coronavirus NL63 Not Detected (Not Detect); Coronavirus OC43 Not Detected (Not Detect); Human Metapneumovirus Not Detected (Not Detect); Human Rhinovirus/Enterovirus Not Detected (Not Detect); Influenza A Subtype 2009 H1 Not Detected (Not Detect); Influenza B Not Detected (Not Detect); Mycoplasma pneumoniae Not Detected (Not Detect); Parainfluenza Virus 1 Not Detected (Not Detect); Parainfluenza Virus 2 Not Detected (Not Detect); Parainfluenza Virus 3 Not Detected (Not Detect); Parainfluenza Virus 4 Not Detected (Not Detect); Respiratory Syncytial Virus Not Detected (Not Detect); SARS-CoV-2 Not Detected (Not Detect)
[2020-08-02] MEDS ORDERED: 0.9 % Sodium Chloride 1,000 ML IVC SCH (18:00)
[2020-08-02 18:08] VITALS: BP 107/52
== END 2020-08-02 19:21 | disposition home health service (06) | DRG 871 ==
LOC: 2ANU 13:08 → EMEROOARM 13:08 → 2ANU 16:35
PROVIDERS: ADMIT Internal Medicine; ATTEND Internal Medicine